=== PATIENT | male | born 1955 | race African-American/Black ===

== ENCOUNTER 2016-12-01 03:30 | Observation (INO) | payer OTHER ==
[2016-12-01] MEDS ORDERED: ASPIRIN 81 MG TABLET, CHEWABLE PO ONE (03:35)
[2016-12-01] MEDS ORDERED: NORMAL SALINE 1000 ML 1,000 ML IV PRN ×2 (03:54→05:03)
[2016-12-01 04:07] LABS: ABSOLUTE BASOPHILS # (AUTO) 0.1 10^3/uL (0.0-0.2); ABSOLUTE EOSINOPHILS # (AUTO) 0.3 10^3/uL (0.0-0.6); ABSOLUTE LYMPHOCYTES (AUTO) 3.3 10^3/uL (0.5-4.7); ABSOLUTE NEUT (AUTO) 2.2 10^3/uL (1.7-8.2); BASOPHILS % (AUTO) 1.1 % (0-2); EOSINOPHILS % (AUTO) 3.9 % (0-6); HEMATOCRIT 40.9 % (37.9-51.0); HEMOGLOBIN 13.3 g/dL (13.5-17.0); MEAN CORPUSCULAR HEMOGLOBIN 30.1 pg (27.0-33.4); MEAN CORPUSCULAR HGB CONC 32.6 g/dL (32.0-36.0); MEAN CORPUSCULAR VOLUME 92 fl (80-97); MONOCYTES % (AUTO) 15.2 % (3-13); RED BLOOD COUNT 4.43 10^6/uL (4.35-5.55); RED CELL DISTRIBUTION WIDTH 15.3 % (11.5-14.0); SEGMENTED NEUTROPHILS % (AUTO) 31.8 % (42-78); WHITE BLOOD COUNT 6.8 10^3/uL (4.0-10.5)
--- NOTE | 2016-12-01 04:55 | ER Document Report ---
ED Medical Screen (RME) - General Chief Complaint: Chest Pain Stated Complaint: CHEST PAIN Time Seen by Provider: 12/01/16 04:10 Mode of Arrival: Medic Information source: Patient TRAVEL OUTSIDE OF THE [place] IN LAST 30 DAYS: No - HPI Patient complains to provider of: midsternal chest pain Onset: Just prior to arrival Onset/Duration: Sudden Quality of pain: Sharp, Stabbing Severity: Severe Pain Level: 5 Associated Symptoms: None Exacerbated by: Denies Relieved by: Denies Similar symptoms previously: No Recently seen / treated by doctor: No Notes: 12/01/16 04:53 Patient is a 61-year-old male with a history of diabetes who is noncompliant with medication, not taking any for the last year, who presents to the emergency room complaining of midsternal chest pain that woke him from sleep around 3:00 in the morning, the chest pain at that time was 5 out of 5, when EMS arrived his blood pressure was noted to be 80/60, they provided aspirin and 1 L of IV fluids and brought patient to the emergency room, upon arrival he reports his pain is now 1 out of 5 hypotensive, is otherwise resting comfortably in no acute distress, IV fluids have been ordered as well as lab and imaging studies - Related Data Allergies/Adverse Reactions: No Known Allergies Allergy (Unverified 12/01/16 04:03) Home Medications: Current Home Medications No Home Medications 12/01/16 [History] Past Medical History - Social History Chew tobacco use (# tins/day): No Frequency of alcohol use: None Drug Abuse: None - Past Medical History Cardiac Medical History: Reports: Hx Hypertension Endocrine Medical History: Reports: Hx Diabetes Mellitus Type 2 Surgical Hx: Negative Physical Exam - Vital signs Vitals: Pulse Ox 100 12/01/16 03:35 Course - Vital Signs Vital signs: Temp Pulse Resp BP Pulse Ox 97.7 F 17 84/69 L 96 12/01/16 04:00 12/01/16 04:01 12/01/16 04:00 12/01/16 04:01 - Laboratory Result Diagrams: 12/01/16 03:52 12/01/16 03:52 Laboratory results interpreted by me: 12/01/16 03:52 Hgb 13.3 L RDW 15.3 H Seg Neutrophils % 31.8 L Lymphocytes % 48.0 H Monocytes % 15.2 H
[2016-12-01 04:56] LABS: ALANINE AMINOTRANSFERASE 74 U/L (21-72); ALBUMIN 3.9 g/dL (3.5-5.0); ALKALINE PHOSPHATASE 61 U/L (38-126); ANION GAP 16 (5-19); ASPARTATE AMINO TRANSFERASE 65 U/L (17-59); BILIRUBIN,DIRECT 0.3 mg/dL (0.0-0.4); BILIRUBIN,TOTAL 0.3 mg/dL (0.2-1.3); BLOOD UREA NITROGEN 8 mg/dL (7-20); CALCIUM 8.9 mg/dL (8.4-10.2); CARBON DIOXIDE 22 mmol/L (22-30); CHLORIDE 112 mmol/L (98-107); CREATINE KINASE 132 U/L (55-170); CREATININE RESULT 0.83 mg/dL (0.52-1.25); GLUCOSE 114 mg/dL (75-110); LIPASE 150.5 U/L (23-300); POTASSIUM 4.6 mmol/L (3.6-5.0); SODIUM 149.7 mmol/L (137-145); TOTAL PROTEIN 7.4 g/dL (6.3-8.2)
[2016-12-01 05:07] LABS: TROPONIN I < 0.012 ng/mL
[2016-12-01 06:32] LABS: APPEARANCE,URINE CLEAR; BILIRUBIN,URINE NEGATIVE (NEGATIVE); GLUCOSE, URINE NEGATIVE (NEGATIVE); KETONES,URINE NEGATIVE (NEGATIVE); LEUKOCYTE ESTERASE,URINE NEGATIVE (NEGATIVE); NITRITE,URINE NEGATIVE (NEGATIVE); PROTEIN,URINE NEGATIVE (NEGATIVE); URINE SPECIFIC GRAVITY 1.015; UROBILINOGEN,URINE NEGATIVE mg/dL (<2.0)
--- NOTE | 2016-12-01 07:24 | ER Document Report ---
ED General - General Chief Complaint: Chest Pain Stated Complaint: CHEST PAIN Time Seen by Provider: 12/01/16 06:09 Mode of Arrival: Medic Information source: Patient Notes: -year-old male no previous cardiac history presents with complaints of pressure sensation midsternal associated with shortness of breath and diaphoresis. Patient notes he has been sweaty intermittently over the past 3-4 weeks, this morning the pressure sensation started, as a dull achiness at this time. Patient denies any fevers or chills TRAVEL OUTSIDE OF THE [place] IN LAST 30 DAYS: No - HPI Onset: Just prior to arrival Onset/Duration: Sudden Quality of pain: Achy, Pressure Severity: Mild Pain Level: 1 Associated symptoms: Chest pain, Shortness of breath Exacerbated by: Denies Relieved by: Denies Similar symptoms previously: No Recently seen / treated by doctor: No - Related Data Allergies/Adverse Reactions: No Known Allergies Allergy (Unverified 12/01/16 04:03) Home Medications: Current Home Medications No Home Medications 12/01/16 [History] Past Medical History - General Information source: Patient - Social History Smoking Status: Never Smoker Cigarette use (# per day): No Chew tobacco use (# tins/day): No Smoking Education Provided: No Frequency of alcohol use: None Drug Abuse: None Family History: CAD - Past Medical History Cardiac Medical History: Reports: Hx Hypertension Endocrine Medical History: Reports: Hx Diabetes Mellitus Type 2 Surgical Hx: Negative Review of Systems - Review of Systems Notes: PHYSICAL EXAMINATION: GENERAL: Well-appearing, well-nourished and in no acute distress. HEAD: Atraumatic, normocephalic. EYES: Pupils equal round and reactive to light, extraocular movements intact, sclera anicteric, conjunctiva are normal. ENT: Nares patent, oropharynx clear without exudates. Moist mucous membranes. NECK: Normal range of motion, supple without lymphadenopathy LUNGS: Breath sounds clear to auscultation bilaterally and equal. No wheezes rales or rhonchi. HEART: Regular rate and rhythm without murmurs ABDOMEN: Soft, nontender, nondistended abdomen. No guarding, no rebound. No masses appreciated. Musculoskeletal: Normal range of motion, no pitting or edema. No cyanosis. NEUROLOGICAL: Cranial nerves grossly intact. Normal speech, normal gait. Normal sensory, motor exams PSYCH: Normal mood, normal affect. SKIN: Warm, Dry, normal turgor, no rashes or lesions noted. Physical Exam - Vital signs Vitals: Pulse Ox 100 12/01/16 03:35 Course - Re-evaluation Re-evalutation: 12/01/16 07:22 And was initially noted to be hypotensive by EMS, a fluid bolus was given and blood pressures improved. The pain is midsternal CTA of the chest was performed which noted no significant abnormality Patient will be admitted for observation - Vital Signs Vital signs: Temp Pulse Resp BP Pulse Ox 97.7 F 17 119/86 H 97 12/01/16 04:00 12/01/16 07:01 12/01/16 07:00 12/01/16 07:01 - Laboratory Result Diagrams: 12/01/16 03:52 12/01/16 03:52 Laboratory results interpreted by me: 12/01/16 12/01/16 03:52 03:52 Hgb 13.3 L RDW 15.3 H Seg Neutrophils % 31.8 L Lymphocytes % 48.0 H Monocytes % 15.2 H Sodium 149.7 H Chloride 112 H Glucose 114 H AST 65 H ALT 74 H - Diagnostic Test Radiology reviewed: Image reviewed, Reports reviewed Discharge - Discharge Clinical Impression: Excessive sweating Chest pain Qualifiers: Chest pain type: unspecified Qualified Code(s): R07.9 - Chest pain, unspecified Condition: Stable Disposition: ADMITTED OBSERVATION Admitting Provider: Hospitalist Unit Admitted: Telemetry
[2016-12-01] MEDS ORDERED: ONDANSETRON HCL INJ/PF 4 MG/2 ML SDV IV PRN (08:03)
[2016-12-01] MEDS ORDERED: NITROGLYCERIN 0.4 MG/TAB 25 TAB/BOTTLE SL PRN (08:03)
--- NOTE | 2016-12-01 09:28 | PDOC H&P ---
History of Present Illness Admission Date/PCP: 12/01/16 07:38 Patient complains of: Midsternal chest pain History of Present Illness: ROCIO RAMIREZ SR is a 61 year old male who presented to [facility] emergency room this morning, via EMS. He was awakened approximately 3 AM with midsternal chest pain and pressure. He denies any diaphoresis, nausea, shortness of breath or palpitations associated with pain. He denies any similar pain in the past. He denies any history of coronary artery disease, or chest pain with exertion. He denies any family history of coronary artery disease. He does have a history of mild gastroesophageal reflux disease, his symptoms were not similar to those symptoms. He does smoke approximately a quarter pack of cigarettes per day. He also has a history of diabetes mellitus type 2 controlled by diet at the present time. He states the pain lasted approximately 1 hour and then gradually dissipated. He states by the time he decided to call EMS the pain was almost resolved. He has had no recurrence of pain since his arrival here. Past Medical History Cardiac Medical History: Reports: Hypertension Pulmonary Medical History: Reports: None EENT Medical History: Reports: None Neurological Medical History: Reports: None Endocrine Medical History: Reports: Diabetes Mellitus Type 2 Renal/ Medical History: Reports: None Malignancy Medical History: Reports: None GI Medical History: Reports: Gastroesophageal Reflux Disease Musculoskeltal Medical History: Reports: None Psychiatric Medical History: Reports: Tobacco Dependency Traumatic Medical History: Reports: None Hematology: Reports: None Infectious Medical History: Reports: None Past Surgical History Past Surgical History: Reports: None Social History Information Source: Patient Lives with: Family Smoking Status: Current Every Day Smoker Cigarettes Packs Per Day: 0.5 Number of Years Smokin Frequency of Alcohol Use: Rare Hx Recreational Drug Use: No Hx Prescription Drug Abuse: No - Advance Directive Resuscitation Status: Full Code Surrogate healthcare decision maker:: SonKee Family History Family History: DM, Hypertension Parental Family History Reviewed: Yes Children Family History Reviewed: Yes Sibling(s) Family History Reviewed.: Yes Medication/Allergy Home Medications: No Home Medications 12/01/16 Allergies/Adverse Reactions: No Known Allergies Allergy (Unverified 12/01/16 04:03) Review of Systems Constitutional: ABSENT: chills, fever(s), headache(s), weight gain, weight loss Eyes: ABSENT: visual disturbances Ears: ABSENT: hearing changes Cardiovascular: PRESENT: chest pain. ABSENT: dyspnea on exertion, edema, orthropnea, palpitations Respiratory: ABSENT: cough, hemoptysis Gastrointestinal: ABSENT: abdominal pain, constipation, diarrhea, hematemesis, hematochezia, nausea, vomiting Genitourinary: ABSENT: dysuria, hematuria Musculoskeletal: ABSENT: joint swelling Integumentary: ABSENT: rash, wounds Neurological: ABSENT: abnormal gait, abnormal speech, confusion, dizziness, focal weakness, syncope Psychiatric: ABSENT: anxiety, depression, homidical ideation, suicidal ideation Endocrine: ABSENT: cold intolerance, heat intolerance, polydipsia, polyuria Hematologic/Lymphatic: ABSENT: easy bleeding, easy bruising Physical Exam Vital Signs: Temp Pulse Resp BP Pulse Ox 98.5 F 82 16 122/78 100 12/01/16 09:14 12/01/16 09:14 12/01/16 09:14 12/01/16 09:14 12/01/16 09:14 General appearance: PRESENT: no acute distress, well-developed, well-nourished Head exam: PRESENT: atraumatic, normocephalic Eye exam: PRESENT: conjunctiva pink, EOMI, PERRLA. ABSENT: scleral icterus Ear exam: PRESENT: normal external ear exam Mouth exam: PRESENT: moist, tongue midline Neck exam: ABSENT: carotid bruit, JVD, lymphadenopathy, thyromegaly Respiratory exam: PRESENT: clear to auscultation susan. ABSENT: rales, rhonchi, wheezes Cardiovascular exam: PRESENT: RRR. ABSENT: diastolic murmur, rubs, systolic murmur Pulses: PRESENT: normal dorsalis pedis pul Vascular exam: PRESENT: normal capillary refill GI/Abdominal exam: PRESENT: normal bowel sounds, soft. ABSENT: distended, guarding, mass, organolmegaly, rebound, tenderness Rectal exam: PRESENT: deferred Extremities exam: PRESENT: full ROM. ABSENT: calf tenderness, clubbing, pedal edema Neurological exam: PRESENT: alert, awake, oriented to person, oriented to place , oriented to time, oriented to situation, CN II-XII grossly intact. ABSENT: motor sensory deficit Psychiatric exam: PRESENT: appropriate affect, normal mood. ABSENT: homicidal ideation, suicidal ideation Skin exam: PRESENT: dry, intact, warm. ABSENT: cyanosis, rash Results Laboratory Results: 12/01/16 08:10 Troponin I < 0.012 Impressions: Chest X-Ray 12/01/16 03:35 IMPRESSION: NO SIGNIFICANT RADIOGRAPHIC FINDING IN THE CHEST. Chest/Abdomen CTA 12/01/16 04:09 IMPRESSION: 1. No acute thoracic abnormality. No evidence of pulmonary embolus. No focal aortic aneurysm or dissection. Assessment & Plan - Diagnosis (1) Chest pain Qualifiers: Chest pain type: unspecified Qualified Code(s): R07.9 - Chest pain, unspecified Is this a current diagnosis for this admission?: YesPlan: Pain is atypical for angina, will admit to telemetry with serial troponins. Pain more likely GI in origin. (2) Diabetes mellitus type 2 in nonobese Is this a current diagnosis for this admission?: YesPlan: Sliding-scale insulin coverage (3) Tobacco abuse Is this a current diagnosis for this admission?: YesPlan: Patient was counseled on tobacco cessation, he is contemplating quitting - Time Time Spent: 50 to 70 Minutes Critical Time spent with patient: 25-34 minutes Smoking Cessation Education: 3 to 10 minutes Medications reviewed and adjusted accordingly: Yes Anticipated discharge: Home Within: within 24 hours
[2016-12-01] MEDS ORDERED: GLUCAGON,HUMAN RECOMB 1 MG INJ IM PRN (09:49)
[2016-12-01] MEDS ORDERED: DEXTROSE 40% GEL 15 GM TUBE PO PRN ×2 (09:49)
[2016-12-01] MEDS ORDERED: DEXTROSE 50%-WATER 25 GM/50 ML DISP.SYRIN IV PRN ×2 (09:49)
[2016-12-01] MEDS ORDERED: INSULIN LISPRO 100 UNIT/ML 3 ML VIAL SUBCUT PRN (09:49)
[2016-12-01] MEDS: ASPIRIN 81 MG TABLET, ENT COATED PO SCH (10:55)
--- NOTE | 2016-12-01 17:07 | EKG REPORT ---
SEVERITY:- ABNORMAL ECG - SINUS RHYTHM FIRST DEGREE AV BLOCK PROBABLE INFERIOR INFARCT, AGE INDETERMINATE CONSIDER ANTEROSEPTAL INFARCT : Confirmed by: Cari Salinas MD 01-Dec-2016 17:05:57
[2016-12-01] MEDS ORDERED: ATORVASTATIN CALCIUM 20 MG TABLET PO SCH (22:00)
[2016-12-01 23:58] LABS: URINE BARBITURATES SCREEN NEGATIVE; URINE METHADONE SCREEN NEGATIVE; URINE OPIATES LOW NEGATIVE; URINE PHENCYCLIDINE SCREEN NEGATIVE
[2016-12-02 06:13] LABS: CHOLESTEROL 158.18 mg/dL (0-200); Direct HDL 70 mg/dL (>40); TRIGLYCERIDES 50 mg/dL (<150)
[2016-12-02 06:24] LABS: DIRECT LDL 66 mg/dL (<100)
[2016-12-02] MEDS ORDERED: ONDANSETRON HCL INJ/PF 4 MG/2 ML SDV IV PRN (09:03)
[2016-12-02] MEDS: ASPIRIN 81 MG TABLET, ENT COATED PO SCH (10:52)
[2016-12-02] MEDS ORDERED: AMINOPHYLLINE INJ/PF 250 MG/10 ML SDV IV ONE (11:54)
[2016-12-02] MEDS ORDERED: REGADENOSON INJ 0.4 MG/5 ML DISP.SYRIN IV ONE (11:54)
[2016-12-02 12:24] VITALS: BP 132/88
--- NOTE | 2016-12-02 13:33 | DRAGON STRESS TEST REPORT ---
INTRAVENOUS LEXISCAN CARDIOLITE STRESS TEST USING SINGLE PHOTON EMMISION COMPUTERIZED TOMOGRAPHIC. DATE OF PROCEDURE: December 02, 2016 INDICATION : Chest pain CARDIAC RISK FACTORS: Diabetes, hypertension, smoking RESTING EKG: Sinus rhythm, no baseline ST segment changes noted. STRESS EKG: No significant changes noted with LexiScan bolus REASON FOR TERMINATION: Protocol. PROCEDURE REPORT: Baseline heart rate 62 beats per minute with blood pressure of 150/109. Patient had no significant complaints. Heart rate at 2 minutes post bolus 112 with a blood pressure of 146/103. 3 minutes post bolus heart rate 98 with blood pressure of 140/101. No significant EKG changes were noted. Patient had no significant complaints during the procedure or postprocedure. Patient injected with Aminophyllin 75 mg at 3 minutes or later after Lexiscan bolus. CONCLUSIONS: Normal EKG and hemodynamic response to IV LexiScan. NUCLEAR DATA: At rest the patient was given 13.31 millicuries of technetium 99 sestamibi injected intravenously. As per protocol rest gated SPECT images were obtained. Subsequently the patient was given intravenous LexiScan at a dose of 0.4 mg in 5 mL intravenously, followed by flush with normal saline. Subsequently the stress dose of 40.7 millicuries of technetium 99 sestamibi was injected intravenously. As per protocol stress gated images were obtained. NUCLEAR INTERPRETATION: Both raw and processed data were used for interpretation. Visual, qualitative, computer-generated quantitative data was used. There was good myocardial uptake of technetium compound. Motion artifact and soft tissue attenuations were noted. Increased visceral uptake was noted. No definitive areas of transient perfusion defect noted. No definitive areas of fixed perfusion defect or scars noted. EKG gated imaging showed LV EF at 54 %, rest and stress gated EF similar visually. T. I D. ratio was 0.98. Lung heart ratio noted to be within normal limits 0.25. No significant extracardiac and abnormal radiotracer activities were noted. RV free wall uptake was noted to be increased. IMPRESSION: Also refer to comments under nuclear interpretation. Also test results needs to be interpreted in the context of pretest probability. 1. There is no definitive scintigraphic evidence of LexiScan induced myocardial ischemia. 2. There is no definitive scintigraphic evidence of myocardial infarction/scar. 3. EKG gated imaging shows left ejection fraction of approximately 54 %. RV free wall uptake noted to be increased consistent with possible RVH. 4. Clinical correlation requested as occasionally single vessel disease or balanced ischemia could be missed. In approximately 10% of the cases Lexiscan may not cause adequate vasodilatory stress. RECOMMENDATIONS: Aggressive risk factor modification, medical therapy. Clinical correlation with echocardiogram derived ejection fraction. Inability to exercise by itself can lead to increased cardiovascular event risks. Consider cardiology consultation and or follow-up if clinically indicated. I AM AVAILABLE FOR CARDIOLOGY CONSULTATION AND FOLLOWUP IF REQUESTED BY PMD Antoni Rodriguez M.D., [facility] Teacher inspector aide, Board certified in cardiovascular diseases, Nuclear cardiology, Echocardiography Cardiac CT and cardiac MRI Ph. [phone] [facility]
--- NOTE | 2016-12-02 16:56 | PDOC DISCHARGE SUMMARY ---
General - Admit/Disc Date/PCP Admission Date/Primary Care Provider: 12/01/16 08:03 Discharge Date: 12/02/16 - Discharge Diagnosis (1) Chest pain Is this a current diagnosis for this admission?: YesSummary: Ruled out for acute coronary syndrome with a negative stress test. Most likely secondary to GI origin (2) Diabetes mellitus type 2 in nonobese Is this a current diagnosis for this admission?: YesSummary: Diet controlled (3) Tobacco abuse Is this a current diagnosis for this admission?: YesSummary: Counseled considering quitting - Additional Information Resuscitation Status: Full Code Discharge Diet: Regular Discharge Activity: Activity As Tolerated, Balance Activity w/Rest Home Medications: No Home Medications 12/01/16 History of Present Illness Patient complains of: Chest pain History of Present Illness: ROCIO RAMIREZ SR is a 61 year old male who presented to [facility] emergency room this morning, via EMS. He was awakened approximately 3 AM with midsternal chest pain and pressure. He denies any diaphoresis, nausea, shortness of breath or palpitations associated with pain. He denies any similar pain in the past. He denies any history of coronary artery disease, or chest pain with exertion. He denies any family history of coronary artery disease. He does have a history of mild gastroesophageal reflux disease, his symptoms were not similar to those symptoms. He does smoke approximately a quarter pack of cigarettes per day. He also has a history of diabetes mellitus type 2 controlled by diet at the present time. He states the pain lasted approximately 1 hour and then gradually dissipated. He states by the time he decided to call EMS the pain was almost resolved. He has had no recurrence of pain since his arrival here. Hospital Course Hospital Course: Patient was admitted to telemetry. He had serial troponins which were all negative. He underwent cardiolite stress test which was negative for ischemia. He had no further episodes of chest pain. He had borderline hypertension during his hospitalization. He will follow up with his primary care provider. He will follow up with his primary care provider . Physical Exam Vital Signs: Temp Pulse Resp BP Pulse Ox 98.4 F 75 20 132/88 H 100 12/02/16 14:06 12/02/16 14:06 12/02/16 14:06 12/02/16 14:06 12/02/16 14:06 Intake & Output 12/01/16 12/02/16 12/03/16 06:59 06:59 06:59 Intake Total 333 240 Balance 333 240 Weight 87.7 kg General appearance: PRESENT: no acute distress, well-developed, well-nourished Head exam: PRESENT: atraumatic, normocephalic Eye exam: PRESENT: conjunctiva pink, EOMI, PERRLA. ABSENT: scleral icterus Ear exam: PRESENT: normal external ear exam Mouth exam: PRESENT: moist, tongue midline Neck exam: ABSENT: carotid bruit, JVD, lymphadenopathy, thyromegaly Respiratory exam: PRESENT: clear to auscultation susan. ABSENT: rales, rhonchi, wheezes Cardiovascular exam: PRESENT: RRR. ABSENT: diastolic murmur, rubs, systolic murmur Pulses: PRESENT: normal dorsalis pedis pul Vascular exam: PRESENT: normal capillary refill GI/Abdominal exam: PRESENT: normal bowel sounds, soft. ABSENT: distended, guarding, mass, organolmegaly, rebound, tenderness Rectal exam: PRESENT: deferred Extremities exam: PRESENT: full ROM. ABSENT: calf tenderness, clubbing, pedal edema Neurological exam: PRESENT: alert, awake, oriented to person, oriented to place , oriented to time, oriented to situation, CN II-XII grossly intact. ABSENT: motor sensory deficit Psychiatric exam: PRESENT: appropriate affect, normal mood. ABSENT: homicidal ideation, suicidal ideation Skin exam: PRESENT: dry, intact, warm. ABSENT: cyanosis, rash Results Laboratory Results: 12/02/16 05:28 Triglycerides 50 Cholesterol 158.18 LDL Cholesterol Direct 66 VLDL Cholesterol 10.0 HDL Cholesterol 70 12/01/16 12/01/16 12/01/16 08:10 14:15 20:50 Troponin I < 0.012 < 0.012 < 0.012 Impressions: Chest X-Ray 12/01/16 03:35 IMPRESSION: NO SIGNIFICANT RADIOGRAPHIC FINDING IN THE CHEST. Chest/Abdomen CTA 12/01/16 04:09 IMPRESSION: 1. No acute thoracic abnormality. No evidence of pulmonary embolus. No focal aortic aneurysm or dissection. Qualifiers PATEINT BEING DISCHARGED WITH ANY OF THE FOLLOWING DIAGNOSIS?: No Plan Discharge Plan: Home with family Time Spent: Less than 30 Minutes
== END 2016-12-02 15:35 | disposition home or self-care (01) ==
LOC: ER 03:30 → UNDOADMOB 07:38 → EH 07:38 → 4N 08:03 → EH 09:01 → 4N 09:01
PROC: HZ31ZZZ Individual Counseling for Substance Abuse Treatment, Behavioral (ICD-10-PCS; principal; 2016-12-01)
DX: R07.89 Other chest pain (principal); E11.9 Type 2 diabetes mellitus without complications; F17.210 Nicotine dependence, cigarettes, uncomplicated; I95.9 Hypotension, unspecified; R61 Generalized hyperhidrosis; Z83.3 Family history of diabetes mellitus; Z87.19 Personal history of other diseases of the digestive system; Z86.79 Personal history of other diseases of the circulatory system
CPT/HCPCS: 93005; 99285; 96360; 36415 ×2; 82553; 82962; 82550; 83690; 85025; 80053; 81001; 84484; 80307; 80061; 93017; 71010; 78452; 71275; 93010; 99406; A9500; J2785; J3490 ×2; J7030; J0280; Q9969; G0378

== ENCOUNTER 2017-07-24 11:55 | Emergency (ER) | payer OTHER ==
[2017-07-24 12:05] VITALS: BP 106/74
--- NOTE | 2017-07-24 13:18 | ER Document Report ---
ED Flu Like - General Chief Complaint: Flu Symptoms Stated Complaint: FLU SYMPTOMS Time Seen by Provider: 07/24/17 13:08 Mode of Arrival: Ambulatory Information source: Patient, Emergency Med Personnel, [facility] Records Notes: 62-year-old male patient comes emergency room with 6 day history of flulike symptoms with green productive cough. Taking multiple [id number] medications were unable to control his cough and congestion. EMS checked the blood sugar 314. He stopped taking his metformin over a year ago. No fever, no chest pain. TRAVEL OUTSIDE OF THE [place] IN LAST 30 DAYS: No - Related Data Allergies/Adverse Reactions: No Known Allergies Allergy (Verified 07/24/17 11:56) Past Medical History - General Information source: Patient, Emergency Med Personnel, [facility] Records - Social History Smoking Status: Current Every Day Smoker Cigarette use (# per day): Yes - 1/2 PPD Chew tobacco use (# tins/day): No Smoking Education Provided: No Frequency of alcohol use: daily 7 beers Drug Abuse: None Occupation: [employer] Lives with: Spouse/Significant other Family History: DM, Hypertension Patient has suicidal ideation: No Patient has homicidal ideation: No - Past Medical History Cardiac Medical History: Reports: Hx Hypertension Pulmonary Medical History: Reports: None EENT Medical History: Reports: None Endocrine Medical History: Reports: Hx Diabetes Mellitus Type 2 Renal/ Medical History: Reports: None GI Medical History: Reports: Hx Gastroesophageal Reflux Disease Musculoskeltal Medical History: Reports None Psychiatric Medical History: Reports: None Past Surgical History: Reports: Hx Orthopedic Surgery - Achilles tendon surgeries Review of Systems - Review of Systems Constitutional: denies: Fever EENT: Nose congestion, Sinus discharge Cardiovascular: No symptoms reported Respiratory: Cough, Sputum, Wheezing Gastrointestinal: No symptoms reported Genitourinary: No symptoms reported Musculoskeletal: No symptoms reported Skin: No symptoms reported Hematologic/Lymphatic: No symptoms reported Neurological/Psychological: No symptoms reported Physical Exam - Vital signs Vitals: Temp Pulse Resp BP Pulse Ox 99.3 F 107 H 14 106/74 94 07/24/17 12:02 07/24/17 12:02 07/24/17 12:02 07/24/17 12:02 07/24/17 12:02 - General General appearance: Appears well, Alert In distress: None - HEENT Head: Normocephalic, Atraumatic Eyes: Normal Pupils: PERRL Tympanic membrane: Normal Nasal: Other - Some nasal and sinus congestion Pharynx: Normal Neck: Normal - Respiratory Respiratory status: No respiratory distress Breath sounds: Wheezing - Some wheezes noted on forced cough - Cardiovascular Rhythm: Regular Heart sounds: Normal auscultation Murmur: No - Abdominal Inspection: Normal Tenderness: Nontender - Back Back: Normal - Extremities General upper extremity: Normal inspection General lower extremity: Normal inspection - Neurological Neuro grossly intact: Yes - Psychological Associated symptoms: Normal affect, Normal mood - Skin Skin Temperature: Warm Skin Moisture: Dry Skin Color: Normal Course - Vital Signs Vital signs: Temp Pulse Resp BP Pulse Ox 99.3 F 107 H 14 106/74 94 07/24/17 12:02 07/24/17 12:02 07/24/17 12:02 07/24/17 12:02 07/24/17 12:02 - Laboratory Result Diagrams: 07/24/17 13:38 07/24/17 13:38 Laboratory results interpreted by me: 07/24/17 07/24/17 07/24/17 13:38 13:38 13:38 WBC 11.1 H RDW 14.5 H Plt Count 90 L Band Neutrophils % 10 H Monocytes % (Manual) 18 H Abs Monocytes (Manual) 2.0 H Sodium 128.9 L Chloride 86 L Glucose 311 H Hemoglobin A1c % > 14.0 H AST 99 H ALT 84 H Discharge - Discharge Clinical Impression: Acute bronchitis with bronchospasm, Noncompliance with medications Diabetes Qualifiers: Diabetes mellitus type: type 2 Diabetes mellitus complication status: without complication Diabetes mellitus custodial insulin use: without manager mobility use Qualified Code(s): E11.9 - Type 2 diabetes mellitus without complications Condition: Stable Disposition: HOME, SELF-CARE Additional Instructions: Bronchitis with Bronchospasm (Wheezing): You have bronchitis with bronchospasm (wheezing). Sometimes people develop wheezing with a chest cold. This occurs either because of an underlying tendency toward asthma or because the virus itself irritates the bronchial tubes. This irritation causes cough, shortness of breath, and wheezing. Emergency treatment of bronchospasm may include adrenaline shots or bronchodilator aerosol. You may feel lightheaded and have a rapid pulse for an hour or two. Rest and get plenty of fluids. At home, we'll treat you with a bronchodilator inhaler. Corticosteroids may be required for some patients. Until you recover, avoid chemical fumes, dusts, pollens, and exercising in very cold or dry air. If you smoke, stop now! Most cases of bronchitis get better without antibiotics. We prescribe antibiotics when we believe bacteria are damaging your airways, or if there's high risk the bronchitis will worsen into pneumonia. Increase your fluid intake. A cool mist humidifier may make your lungs more comfortable. An expectorant (cough medicine that loosens phlegm) can help. Repeated episodes of bronchitis and bronchospasm may result in lung damage -- for example, chronic bronchitis, recurrent pneumonias, or emphysema. If you develop a fever, increased wheezing, chest pain, or severe shortness of breath, you should contact the doctor immediately. Diabetes: You have an abnormally high blood sugar due to not treating your diabetes Uncontrolled high blood sugar leads to early heart disease, strokes, nerve damage, eye damage, and kidney damage. All diabetics should follow a diet designed to control the blood sugar. Diabetics should exercise regularly and take their medications. Home testing of blood sugars is required. Call the physician if there is faintness, excess sleepiness, or very rapid breathing. If hypoglycemia (LOW blood sugar) develops, symptoms are shakiness, weakness, sweating, and confusion. In this case, you should eat or drink something with sugar at once. //////////////////////////////////////////////////////////////////////////////// //////////////////////////////////////////////////////////////////////////////// /////////////// Take medications as prescribed. Try to stop smoking and stop drinking alcohol. Drink plenty of fluids. Get plenty of rest. Follow-up with local medical doctor to manage your diabetes. RETURN TO THE EMERGENCY ROOM IF ANY NEW OR WORSENING SYMPTOMS. Prescriptions: Albuterol Sulfate [Proair HFA] 1 - 2 puff IH Q4 PRN #1 inhaler PRN Reason: Azithromycin [Zithromax 250 mg Tablet] 250 mg PO ASDIR PRN #6 tablet PRN Reason: Metformin HCl [Glucophage] 850 mg PO BID #60 tablet
--- NOTE | 2017-07-24 14:03 | RADIOLOGY REPORT (SQ) ---
EXAM DESCRIPTION: CHEST PA/LAT COMPLETED DATE/TIME: 07/24/2017 1:47 pm REASON FOR STUDY: cough, congestion, wheezing COMPARISON: None. EXAM PARAMETERS: NUMBER OF VIEWS: two views TECHNIQUE: Digital Frontal and Lateral radiographic views of the chest acquired. RADIATION DOSE: NA LIMITATIONS: none FINDINGS: LUNGS AND PLEURA: No opacities, masses or pneumothorax. No pleural effusion. MEDIASTINUM AND HILAR STRUCTURES: No masses or contour abnormalities. HEART AND VASCULAR STRUCTURES: Heart normal size. No evidence for failure. BONES: No acute findings. HARDWARE: None in the chest. OTHER: No other significant finding. IMPRESSION: NO SIGNIFICANT RADIOGRAPHIC FINDING IN THE CHEST. TECHNICAL DOCUMENTATION: JOB ID: [id number] [employer]- All Rights Reserved
[2017-07-24 14:05] LABS: HEMATOCRIT 47.3 % (37.9-51.0); HEMOGLOBIN 15.8 g/dL (13.5-17.0); MEAN CORPUSCULAR HEMOGLOBIN 30.7 pg (27.0-33.4); MEAN CORPUSCULAR HGB CONC 33.4 g/dL (32.0-36.0); MEAN CORPUSCULAR VOLUME 92 fl (80-97); RED BLOOD COUNT 5.16 10^6/uL (4.35-5.55); RED CELL DISTRIBUTION WIDTH 14.5 % (11.5-14.0); WHITE BLOOD COUNT 11.1 10^3/uL (4.0-10.5)
[2017-07-24 14:24] LABS: ALANINE AMINOTRANSFERASE 84 U/L (21-72); ALKALINE PHOSPHATASE 87 U/L (38-126); ANION GAP 17 (5-19); ASPARTATE AMINO TRANSFERASE 99 U/L (17-59); BILIRUBIN,DIRECT 0.4 mg/dL (0.0-0.4); BILIRUBIN,TOTAL 0.7 mg/dL (0.2-1.3); BLOOD UREA NITROGEN 18 mg/dL (7-20); CALCIUM 9.3 mg/dL (8.4-10.2); CARBON DIOXIDE 26 mmol/L (22-30); CHLORIDE 86 mmol/L (98-107); GLUCOSE 311 mg/dL (75-110); POTASSIUM 4.3 mmol/L (3.6-5.0); SODIUM 128.9 mmol/L (137-145)
[2017-07-24 14:41] LABS: PLATELET COUNT 90 10^3/uL (150-450)
[2017-07-24 14:44] LABS: ABSOLUTE LYMPHOCYTES# (MANUAL) 1.7 10^3/uL (0.5-4.7); ABSOLUTE NEUTROPHILS# (MANUAL) 7.4 10^3/uL (1.7-8.2); BAND NEUTROPHILS % (MANUAL) 10 % (3-5); BASOPHILS % (MANUAL) 0 % (0-2); EOSINOPHILS % (MANUAL) 0 % (0-6); LYMPHOCYTES % (MANUAL) 15 % (13-45); MONOCYTES % (MANUAL) 18 % (3-13); PLATELET COMMENT DECREASED; SEGMENTED NEUTROPHILS % (MAN) 57 % (42-78); TOTAL CELLS COUNTED 100; TOXIC GRANULATION SLIGHT; TOXIC VACUOLATION PRESENT
[2017-07-24 14:45] LABS: RBC MORPHOLOGY COMMENT NORMO-CYTIC/CHROMIC
== END 2017-07-24 15:20 | disposition home or self-care (01) ==
LOC: ER 11:55
DX: J20.9 Acute bronchitis, unspecified (principal); R05 Cough; R09.81 Nasal congestion; I10 Essential (primary) hypertension; E11.9 Type 2 diabetes mellitus without complications; Z91.14 Patient's other noncompliance with medication regimen; F17.210 Nicotine dependence, cigarettes, uncomplicated
CPT/HCPCS: 36415; 71046; 80053; 83036; 85025; 99284